=== PATIENT | female | born 1970 | race Caucasian/White ===

== ENCOUNTER → 2021-12-01 | Outpatient (CLI) | payer OTHER | LOC: CARD 13:38 | PROVIDERS: ATTEND Nurse Practitioner Family | DX: R00.0 Tachycardia, unspecified (principal) | CPT/HCPCS: 93225; 93226 ==

== ENCOUNTER 2022-01-24 05:38 | Outpatient (CLI) | payer OTHER ==
[~2022-01-24] VITALS: Ht 172.7 cm; Wt 96.2 kg
[2022-01-29] MEDS ORDERED: LEVO5TAB12 PO (13:53)
[2022-01-29] MEDS ORDERED: VENL75TA2 PO (13:53)
== END 2022-01-29 14:00 | disposition home or self-care (01) ==
LOC: PREOP 05:38
PROVIDERS: ATTEND Surgery
DX: Z01.818 Encounter for other preprocedural examination (principal); Z12.11 Encounter for screening for malignant neoplasm of colon; K21.9 Gastro-esophageal reflux disease without esophagitis

== ENCOUNTER 2022-02-02 13:06 | Day surgery (SDC) | payer OTHER ==
[~2022-02-02] VITALS: Ht 173 cm; Wt 96.2 kg
[~2022-02-02 13:06] MED LIST: LEVO5TAB12 PO; VENL75TA2 PO
[2022-02-02] MEDS ORDERED: LACTATED RINGERS 1,000 ML IV STA (13:07)
[2022-02-02] MEDS ORDERED: HURRICAINE EXT TUBE (BENZOCAINE) XX PRN (13:15)
--- NOTE | 2022-02-02 13:19 | Progress Note-Pre Operative ---
Pre-Operative Progress Note Date of Available H&P: Jan 03, 2022 Date H&P Reviewed: Feb 02, 2022 Time H&P Reviewed: 13:19 History & Physical: H&P Reviewed, Patient Examed, No changes noted Pre-Operative Diagnosis: Screening colonoscopy and GERD YADI MCGOVERN DO Feb 02, 2022 13:19
[2022-02-02 13:32] VITALS: BP 126/56
--- NOTE | 2022-02-02 14:35 | Anesthesia-General Post-Op ---
MAC Patient Condition Mental Status/LOC: Same as Preop Cardiovascular: Satisfactory Nausea/Vomiting: Absent Respiratory: Satisfactory Pain: Controlled Complications: Absent Post Op Complications Complications None Follow Up Care/Instructions Patient Instructions None needed. Anesthesiology Discharge Order Discharge Order Patient is doing well, no complaints, stable vital signs, no apparent adverse anesthesia problems. No complications reported per nursing. CLARIBEL ISABEL CRNA Feb 02, 2022 14:35
[2022-02-02] MEDS ORDERED: MIDAZOLAM 2 MG/2 ML (VERSED) VIAL ONE (14:37)
[2022-02-02] MEDS ORDERED: PROPOFOL INJECTION 50 ML IV ONE ×2 (14:37→15:00)
[2022-02-02 15:25] VITALS: BP 108/58
[2022-02-02 15:30] VITALS: BP 108/56
[2022-02-02] MEDS ORDERED: PANT40TA2 PO (15:33)
--- NOTE | 2022-02-02 15:33 | Discharge Inst-Simple/Standard ---
Discharge Inst-Standard Discharge Medications New, Converted or Re-Newed RX: Transmitted to Pharmacy Patient Instructions/Follow Up Plan of Care/Instructions/FU: 2 weeks Ruddy Activity as Tolerated: Yes Discharge Diet: Regular Diet YADI MCGOVERN DO Feb 02, 2022 15:33
[2022-02-02 15:35] VITALS: BP 97/66
[2022-02-02 16:00] VITALS: BP 121/67
[2022-02-02 16:30] VITALS: BP 121/67
--- NOTE | 2022-02-02 23:14 | OPERATIVE REPORT ---
DATE OF SERVICE: 02/02/2022 PREOPERATIVE DIAGNOSES: Gastroesophageal reflux disease, screening colonoscopy. POSTOPERATIVE DIAGNOSES: Reflux esophagitis, small hiatal hernia, normal colon. PROCEDURE: EGD with biopsies, colonoscopy. SURGEON: Yadi Fox DO. ANESTHESIA: Per OLERICULTURE TEACHER. ESTIMATED BLOOD LOSS: None. COMPLICATIONS: None. INDICATIONS: The patient is a 51-year-old female needing a colonoscopy and has an EGD for GERD symptoms. She understands risks and benefits of procedure and wishes to proceed. Consent was signed in the chart. DESCRIPTION OF PROCEDURE: The patient was taken to the endoscopy suite, placed in left lateral recumbent position. Timeout was performed. Scope was inserted in mouth, down the esophagus, stomach and into the duodenum without difficulty. There were no polyps, masses or ulcerations within the duodenum. Scope was slowly retracted back to stomach where it was further insufflated. No polyps, masses or ulcerations. Scope was retroflexed noting a small hiatal hernia. Scope was returned to its normal position. Biopsy of the antrum was obtained. Scope was slowly retracted back to distal esophagus, changes of reflux esophagitis present. Biopsy obtained. Scope was then slowly retracted back to completely remove noting no other pathology. Digital rectal exam was performed. No palpable polyps, masses or ulcerations. Scope was inserted in the rectum and advanced all the way to cecum with minimal difficulty. Prep was adequate with irrigation and suction. No polyps, masses or ulcerations in the cecum. The ileocecal valve was intubated and normal appearance. Scope was continuously retracted back. No polyps, masses or ulcerations within the ascending, transverse, descending and sigmoid colon. Once in the rectum, scope was retroflexed noting no other pathology. Scope was returned to its normal position, slowly withdrawn until completely removed. The patient tolerated the procedure well without any complications. She was taken to recovery room in stable condition. RECOMMENDATIONS: The patient will follow up in 2 weeks to discuss pathology results. We will add Protonix 40 mg daily to see how this improves. The patient will need repeat colonoscopy in 10 years unless family history of colon cancer, which would then be 5 years or any problems prior to that, she should be reevaluated at that time. Job ID: [id number] DocumentID: [id number] Dictated Date: 02/02/2022 15:37:08 Juvenile Officer Date: 02/02/2022 23:13:07 Dictated By: YADI FOX DO
== END 2022-02-02 16:30 | disposition home or self-care (01) ==
LOC: ENDO 13:06
PROVIDERS: ATTEND Surgery
DX: Z12.11 Encounter for screening for malignant neoplasm of colon (principal); K21.00 Gastro-esophageal reflux disease with esophagitis, without bleeding; K29.70 Gastritis, unspecified, without bleeding; K44.9 Diaphragmatic hernia without obstruction or gangrene; Z28.310 Unvaccinated for COVID-19
CPT/HCPCS: 84703

== ENCOUNTER 2023-02-18 13:47 | Emergency (ER) | payer OTHER ==
[~2023-02-18] VITALS: Ht 172.7 cm; Wt 104.5 kg
[~2023-02-18 13:47] MED LIST changes: +PANT40TA2 PO
[2023-02-18] MEDS ORDERED: ASPIRIN 81 MG CHEWABLE TABLET PO STA (14:18)
--- NOTE | 2023-02-18 14:22 | ED Neurological Problem ---
General Chief Complaint: Neuro-Stroke Like Symptoms Stated Complaint: MEMORY LAPSES Nursing Triage Note: PT TO ED WITH C/O MEMORY LOSS. DAUGHTER STATES THE PT HAS BEEN VERY FORGETFUL THIS MORNING, NOT REMEBERING THINGS THAT SHE DID THIS WEEKEND, NOT REMEMERING PLANS MADE, FORGETTING WHAT HER SON DOES FOR A LIVING. LKW UNCLEAR DAUGHTER SAYS SHE KNOWS SHE WAS FOR SURE 100% LAST SATURDAY BUT SHE MET WITH A REALATOR THIS AM AROUND 1030 AND HE SAID THAT SHE ACTED NORMAL Source: patient, family (daughter) Exam Limitations: no limitations (YADI LAGUNAS) History of Present Illness Date Seen by Provider: Feb 18, 2023 Time Seen by Provider: 14:00 Initial Comments Patient presents with her daughter with a 3-4 day history of memory loss. Daughter says the last time she knows she was fine was on . Daughter states that she had started taking a new weight loss drug on Saturday or Saturday as well. She is having trouble remembering plans that she had made, conversations that she had had and remembering what her sons do for a living. Which is out of the ordinary for her. She met with a realtor this morning and can remember a summary of what they talked about and this was confirmed with the realtor. He says he cannot speak completely to her state as it has been over a year since he has seen her but did not notice any stroke like symptoms or memory lapses when he was with her. She says that she is under an extreme amount of stress currently and wonder if that is bothering her. She does recall throwing up this morning while working on some pallets that had been rained on at the house she was at. She does not believe that they were moldy or infested with anything. She denies any fevers, GI issues other than one vomiting episode, or issues. Timing/Duration: 24 hours Severity: mild Associated Symptoms: confusion, nausea/vomiting (YADI LAGUNAS) Allergies and Home Medications Allergies Coded Allergies: No Known Drug Allergies (Unverified , 01/29/22) Patient Home Medication List Home Medication List Reviewed: Yes (YADI LAGUNAS) Home Medication List Reviewed: Yes (GIO ALONZO DO) Levocetirizine Dihydrochloride (Levocetirizine Dihydrochloride) 5 Mg Tablet, 5 MG PO DAILY, (Reported) Entered as Reported by: ZIYAD SIDDIQUI on 01/29/22 1353 Pantoprazole Sodium (Protonix) 40 Mg Tablet.dr, 40 MG PO DAILY Prescribed by: YADI MCGOVERN on 02/02/22 1533 Venlafaxine HCl (Venlafaxine HCl ER) 75 Mg Tab.er.24, 75 MG PO DAILY, (Reported) Entered as Reported by: ZIYAD SIDDIQUI on 01/29/22 1353 Review of Systems Review of Systems Constitutional: no symptoms reported Eyes: Denies Blurred Vision, Denies Previous Injury, Denies Vision Changes Ears, Nose, Mouth, Throat: no symptoms reported Respiratory: no symptoms reported Cardiovascular: no symptoms reported Gastrointestinal: No heartburn, No loss of appetite; vomiting Genitourinary: No discharge, No dysuria, No frequency, No hematuria Musculoskeletal: no symptoms reported Psychiatric/Neurological: Denies Tingling, Denies Unable to Move Lower Ext, Denies Unable to Move Upper Ext, Denies Weakness (YADI LAGUNAS) All Other Systems Reviewed Negative Unless Noted: Yes (YADI LAGUNAS) Past Xjfmfqt-Tauxek-Yfuvua Hx Immunizations Up To Date First/Initial COVID19 Vaccinat: NO Second COVID19 Vaccination Stanislaw: NO Third COVID19 Vaccination Date: NO (YADI LAGUNAS) Seasonal Allergies Seasonal Allergies: No (YADI LAGUNAS) Past Medical History Surgeries: Yes (D/C, HAND SX) Adenoidectomy, Tonsillectomy Respiratory: No Cardiac: No Neurological: No Genitourinary: No Gastrointestinal: No Musculoskeletal: No Endocrine: No HEENT: No Cancer: No Psychosocial: Yes Depression Integumentary: No Blood Disorders: No (YADI LAGUNAS) Physical Exam Vital Signs Vital Signs - First Documented 02/18/23 13:55 Temp 35.8 Pulse 80 Resp 16 B/P (MAP) 138/79 (98) Pulse Ox 95 (DETAR,GIO W DO) Vital Signs Capillary Refill : (YADI LAGUNAS) Height, Weight, BMI Height: '" Weight: lbs. oz. kg; 35.00 BMI Method: General Appearance: WD/WN, no apparent distress Neck: full range of motion, supple Respiratory: lungs clear, normal breath sounds, no respiratory distress, no accessory muscle use; No crackles, No rales, No wheezing Cardiovascular: regular rate, rhythm, no edema, no gallop, no murmur Gastrointestinal: normal bowel sounds, non tender, soft Extremities: normal range of motion, normal inspection, no pedal edema; No pedal edema Neurologic/Psychiatric: car rental agent II-XII nml as tested, no motor/sensory deficits, alert, normal mood/affect; No oriented x 3 (does not know month or year or day of the week), No facial droop, No motor weakness; disoriented x 3 Crainal Nerves: normal hearing, normal speech; No facial droop, No facial paresthesias, No facial weakness, No hearing deficit (R), No hearing deficit (L), No tongue deviation to R, No tongue deviation to L Coordination/Gait: normal finger to nose, normal gait, negative Romberg's sign Motor/Sensory: no motor deficit, no sensory deficit, no pronator drift; No pronator drift (R), No pronator drift (L) (YADI LAGUNAS) Stroke Onset of Symptoms Symptoms onset unknown: Yes (YADI LAGNUAS) NIH Stroke Scale Assessment Select: Initial Level of Consciousness: 0=Alert (0), Level of Consciousness- Questions: 0=Answers both month/age knows year born and age (0), Gaze: Normal (0), Visual Gonzalez: 0=No visual loss (0), Facial Movement (Facial Paresis): 0=Normal symmetrical mnt (0), Motor Function-Arms Right: 0=No drift (0), Motor Function-Arms Left: 0=No drift (0), Motor Function-Legs Right: 0=No drift (0), Motor Function-Legs Left: 0=No drift (0), Limb Ataxia: 0=Absent (0), Sensory: 0=Normal:no loss (0), Best Language: 0=No aphasia (0), Dysarthria: 0=Normal (0), Extinction & Inattention: 0=No abnormality (0), Tot al: 0 Stroke Thrombolytic Exclusion Age 18 or Over: Yes Acute intenal hemorrhage: No History of CVA: No (YADI LAGUNAS) Progress/Results/Core Measures Results/Orders Lab Results Laboratory Tests Test 02/18/23 14:07 02/18/23 14:08 02/18/23 14:19 Range/Units White Blood Count 6.6 4.3-11.0 10^3/uL Red Blood Count 4.92 3.80-5.11 10^6/uL Hemoglobin 14.8 11.5-16.0 g/dL Hematocrit 45 35-52 % Mean Corpuscular Volume 92 80-99 fL Mean Corpuscular Hemoglobin 30 25-34 pg Mean Corpuscular Hemoglobin Concent 33 32-36 g/dL Red Cell Distribution Width 13.2 10.0-14.5 % Platelet Count 263 130-400 10^3/uL Mean Platelet Volume 10.2 9.0-12.2 fL Immature Granulocyte % (Auto) 0 % Neutrophils (%) (Auto) 76 H 42-75 % Lymphocytes (%) (Auto) 16 12-44 % Monocytes (%) (Auto) 6 0-12 % Eosinophils (%) (Auto) 1 0-10 % Basophils (%) (Auto) 1 0-10 % Neutrophils # (Auto) 5.0 1.8-7.8 10^3/uL Lymphocytes # (Auto) 1.0 1.0-4.0 10^3/uL Monocytes # (Auto) 0.4 0.0-1.0 10^3/uL Eosinophils # (Auto) 0.1 0.0-0.3 10^3/uL Basophils # (Auto) 0.0 0.0-0.1 10^3/uL Immature Granulocyte # (Auto) 0.0 0.0-0.1 10^3/uL Prothrombin Time 13.4 12.2-14.7 SEC INR Comment 1.0 0.8-1.4 Activated Partial Thromboplast Time 25 24-35 SEC Sodium Level 140 135-145 MMOL/L Potassium Level 4.0 3.6-5.0 MMOL/L Chloride Level 105 98-107 MMOL/L Carbon Dioxide Level 20 L 21-32 MMOL/L Anion Gap 15 H 5-14 MMOL/L Blood Urea Nitrogen 14 7-18 MG/DL Creatinine 1.21 0.60-1.30 MG/DL Estimat Glomerular Filtration Rate 54 BUN/Creatinine Ratio 12 Glucose Level 81 70-105 MG/DL Calcium Level 9.8 8.5-10.1 MG/DL Corrected Calcium 8.5-10.1 MG/DL Total Bilirubin 0.5 0.1-1.0 MG/DL Aspartate Amino Transf (AST/SGOT) 25 5-34 U/L Alanine Aminotransferase (ALT/SGPT) 18 0-55 U/L Alkaline Phosphatase 95 40-136 U/L Troponin I < 0.028 <0.028 NG/ML Total Protein 8.0 6.4-8.2 GM/DL Albumin 4.7 H 3.2-4.5 GM/DL Glucometer 85 70-110 MG/DL Urine Color YELLOW Urine Clarity SL CLOUDY Urine pH 6.0 5-9 Urine Specific [place] 1.025 H 1.016-1.022 Urine Protein 3+ H NEGATIVE Urine Glucose (UA) NEGATIVE NEGATIVE Urine Ketones 3+ H NEGATIVE Urine Nitrite NEGATIVE NEGATIVE Urine Bilirubin 3+ H NEGATIVE Urine Urobilinogen 1.0 < = 1.0 MG/DL Urine Leukocyte Esterase NEGATIVE NEGATIVE Urine RBC (Auto) NEGATIVE NEGATIVE Urine RBC 2-5 H /HPF Urine WBC 2-5 /HPF Urine Squamous Epithelial Cells 25-50 H /HPF Urine Crystals PRESENT H /LPF Urine Calcium Oxalate Crystals LARGE H /LPF Urine Amorphous Sediment LARGE BETTY URATES H /LPF Urine Bacteria TRACE /HPF Urine Casts PRESENT /LPF Urine Hyaline Casts 25-50 H /LPF Urine Granular Casts 0-2 H /LPF Urine Mucus NEGATIVE /LPF Urine Culture Indicated NO (DETAR,GIO W DO) My Orders Orders - DETAR,GIO W DO Cbc And Automated Diff (02/18/23 14:18) Protime With Inr (02/18/23 14:18) Partial Thromboplastin Time (02/18/23 14:18) Comprehensive Metabolic Panel (02/18/23 14:18) Troponin I [place] (02/18/23 14:18) Ua Culture If Indicated (02/18/23 14:18) Chest 1 View, Ap/Pa Only (02/18/23 14:18) Ekg Tracing (02/18/23 14:18) Accucheck Stat ONCE (02/18/23 14:18) Ed Iv/Invasive Line Start (02/18/23 14:18) Vital Signs Stroke Patient Q15M (02/18/23 14:18) Ct Head Wo-R/O Stroke (02/18/23 14:18) O2 (02/18/23 14:18) Aspirin Chewable Tablet (Aspirin Chewabl (02/18/23 14:18) Monitor-Rhythm Ecg Trace Only (02/18/23 14:18) Dysphagia Screening Tool Q10MX1 (02/18/23 14:18) Ed Iv/Invasive Line Start (02/18/23 14:49) Ns Iv 1000 Ml (Ns Iv 1000 Ml) (02/18/23 15:00) (GIO ALONZO DO) Vital Signs/I&O 02/18/23 13:55 Temp 35.8 Pulse 80 Resp 16 B/P (MAP) 138/79 (98) Pulse Ox 95 (DETAR,GIO W DO) Blood Pressure Mean: 98 FSBG Bedside Testing Finger Stick Blood Glucose: 85 Blood Glucose Action Taken: RN notified (YADI LAGUNAS) Progress Progress Note : Time: 14:20 Progress Note 14:20 - Patient presents with her daughter with a 3-4 day history of memory loss. Daughter says the last time she knows she was fine was on . Daughter states that she had started taking a new weight loss drug on Saturday or Saturday as well. She is having trouble remembering plans that she had made, conversations that she had had and remembering what her sons do for a living. Which is out of the ordinary for her. She met with a realtor this morning and can remember a summary of what they talked about and this was confirmed with the realtor. He says he cannot speak completely to her state as it has been over a year since he has seen her but did not notice any stroke like symptoms or memory lapses when he was with her. She says that she is under an extreme amount of stress currently and wonder if that is bothering her. She does recall throwing up this morning while working on some pallets that had been rained on at the house she was at. She does not believe that they were moldy or infested with anything. She denies any fevers, GI issues other than one vomiting episode, or issues. The only deficit on her Stroke NIH scale is she is unaware of the day of the week, month or year currently. Plan is to get stroke protocol started on her at this time. (YADI LAGUNAS) Progress Note : Progress Note Urine is contaminated with squamous cells or is ketones noted as well. Will provide 1 L of normal saline. No evidence of infection. Patient has been on semaglutide injections for weight loss states that has been working advised her that this would not be ideal and can put her in a state of ketosis that she states she is only eating small amounts of protein and salads. Long discussion regarding adequate nutrition and macronutrient intake. Daughter agrees with this patient is hesitant advised her to skip the next couple of doses of her injections and see if her memory clears. Patient agrees. NIHSS 1-cannot recall the month or year (GIO ALONZO DO) Initial ECG Rhythm: Normal Sinus Initial ECG Impression: Normal (GIO ALONZO DO) Diagnostic Imaging Diagonstic Imaging: Xray (Chest negative), CT (Had negative) Reviewed: Reviewed [place] Study, Reviewed by Me (GIO ALONZO DO) CP/AMI: Aspirin CVA/SNYCOPE: ECG (GIO ALONZO DO) Departure Communication (Admissions) Family Conversation Discussed stopping semaglutide injections with patient and daughter who agrees. Discussed healthy carbs and dietary changes for health maintenance much less weight loss. (GIO ALONZO DO) Impression Primary Impression: Acute memory impairment Additional Impressions: Medication side effect Ketonuria Disposition: HOME, SELF-CARE Condition: Improved Departure-Patient Inst. Referrals: ALIREZA DAY APRN (PCP/Family) Primary Care Physician Patient Instructions: Evaluating memory and thinking problems, How to Help Your Memory, Ketogenic diet, Side effects from medicines Add. Discharge Instructions: Avoid using semaglutide injections to see if this helps and overall improvement of memory. Ideally would like you to stop using these injections at all. Drink plenty of water. Ketogenic diet instructions included please discuss dietary changes and nutritional plans with your primary care or a certified surgical tech/first assistant as there are metabolic side effects related to these rapid weight loss diet regimes All discharge instructions reviewed with patient and/or family. Voiced understanding. YADI LAGUNAS Feb 18, 2023 14:22 GIO ALONZO DO Feb 18, 2023 14:55
[2023-02-18 14:25] LABS: BASOPHILS % (AUTO) 1 % (0-10); EOSINOPHILS # (AUTO) 0.1 10^3/uL (0.0-0.3); EOSINOPHILS % (AUTO) 1 % (0-10); HEMATOCRIT 45 % (35-52); HEMOGLOBIN 14.8 g/dL (11.5-16.0); LYMPHOCYTES % (AUTO) 16 % (12-44); MEAN CORPUSCULAR HEMOGLOBIN 30 pg (25-34); MEAN CORPUSCULAR HGB CONC 33 g/dL (32-36); MEAN CORPUSCULAR VOLUME 92 fL (80-99); MEAN PLATELET VOLUME 10.2 fL (9.0-12.2); MONOCYTES # (AUTO) 0.4 10^3/uL (0.0-1.0); MONOCYTES % (AUTO) 6 % (0-12); NEUTROPHILS % (AUTO) 76 % (42-75); PLATELET COUNT 263 10^3/uL (130-400); WHITE BLOOD COUNT 6.6 10^3/uL (4.3-11.0)
[2023-02-18 14:29] LABS: ALBUMIN 4.7 GM/DL (3.2-4.5); CHLORIDE 105 MMOL/L (98-107)
[2023-02-18 14:30] LABS: SODIUM 140 MMOL/L (135-145)
[2023-02-18 14:31] LABS: CALCIUM 9.8 MG/DL (8.5-10.1)
[2023-02-18 14:32] LABS: GLUCOSE 81 MG/DL (70-105)
[2023-02-18 14:33] LABS: CARBON DIOXIDE 20 MMOL/L (21-32)
[2023-02-18 14:34] LABS: BILIRUBIN,TOTAL 0.5 MG/DL (0.1-1.0); PROTHROMBIN TIME PATIENT 13.4 SEC (12.2-14.7)
[2023-02-18 14:35] LABS: ALKALINE PHOSPHATASE 95 U/L (40-136)
[2023-02-18 14:36] LABS: CREATININE SERUM 1.21 MG/DL (0.60-1.30); GFR ESTIMATED 54
[2023-02-18 14:37] LABS: BUN/CREATININE RATIO 12
[2023-02-18 14:37] LABS: COLOR,URINE YELLOW
[2023-02-18 14:38] LABS: ALANINE AMINOTRANSFERASE 18 U/L (0-55)
[2023-02-18 14:38] LABS: BILIRUBIN,URINE 3+ (NEGATIVE); CLARITY,URINE SL CLOUDY; GLUCOSE, URINE (UA) NEGATIVE (NEGATIVE); KETONES,URINE 3+ (NEGATIVE); LEUKOCYTE ESTERASE ,URINE NEGATIVE (NEGATIVE); NITRITE,URINE NEGATIVE (NEGATIVE); PROTEIN,URINE 3+ (NEGATIVE)
[2023-02-18 14:39] LABS: AMORPHOUS SEDIMENT,UR LARGE AMOR URATES /LPF; BACTERIA,URINE TRACE /HPF; CALCIUM OXALATE CRYSTALS,UR LARGE /LPF; GRANULAR CASTS,URINE 0-2 /LPF; HYALINE CASTS, URINE 25-50 /LPF; SQUAMOUS EPITHELIAL CELL,UR 25-50 /HPF
--- NOTE | 2023-02-18 14:54 | Diagnostic Imaging Report ---
EXAMINATION: CT head without contrast. TECHNIQUE: Multiple contiguous axial images were obtained through the brain without the use of intravenous contrast. All CT scans use one or more of the following dose optimizing techniques: automated exposure control, MA and/or KvP adjustment based on patient size and exam type or iterative reconstruction. HISTORY: Memory loss. Vomiting. Concern for stroke. COMPARISON: None available. FINDINGS: No large acute territorial ischemia, mass, or hemorrhage. No midline shift or mass effect. The ventricles, cortical sulci, and basilar cisterns are patent and unremarkable. The orbits are normal. Paranasal sinuses are normal. Mastoid air cells are clear. No soft tissue abnormality is seen. No osseus lesions or fractures are seen. IMPRESSION: No large acute territorial ischemia, mass, or hemorrhage. Dictated by: Dictated on workstation # [id number]
[2023-02-18] MEDS ORDERED: NS IV 1000 ML 1,000 ML IV SCH (15:00)
--- NOTE | 2023-02-18 15:09 | Diagnostic Imaging Report ---
INDICATION: Memory loss, altered mental status. TECHNIQUE: Frontal chest obtained at 02:50 p.m. FINDINGS: Heart and mediastinal silhouette are normal in appearance. The lungs are clear. There is no pneumothorax or pleural fluid. IMPRESSION: Negative chest. Dictated by: Dictated on workstation # [id number]
[2023-02-18 15:42] VITALS: BP 115/72
== END 2023-02-18 15:42 | disposition home or self-care (01) ==
LOC: EDUNIT# 13:47 → ER 13:49
DX: T50.995A Adverse effect of other drugs, medicaments and biological substances, initial encounter (principal); R41.3 Other amnesia; R82.4 Acetonuria; R11.2 Nausea with vomiting, unspecified; Z28.310 Unvaccinated for COVID-19
CPT/HCPCS: 36415; 70450; 71045; 80053; 81000; 82947; 84484; 85025; 85610; 85730; 93005; 93041